=== PATIENT | male | born 1965 | race African-American/Black ===

== ENCOUNTER 2017-12-03 11:42 | Inpatient (IN) | payer OTHER ==
--- NOTE | 2017-12-03 13:04 | PDOC ---
History of Present Illness - General Chief Complaint: Edema Stated Complaint: SWOLLEN FACE Time Seen by Provider: 12/03/17 12:41 - History of Present Illness Initial Comments: 12/03/17 12:58 52 yo M with no significant pmh who p/w right sided facial swelling. Patient reports acute onset of worsening, right sided, non-painful, "cheek" swelling this AM upon waking up. States that he was blowing and picking in his nose the day before and believes he may have injured the area. Denies h/o similar presentation. Patient states that he is scheduled for lumbar back surgery (12/31). No recent travels or sick contacts. Denies trauma to face. Not on LORE-I Patient denies GREGORY, hoarseness, muffled voice, odynophagiua, dysphagia, ear pain , N/V, F,C, CP, Cough, Swelling, Palpitations, SOB, urinary complaints, abdominal pain, diarrhea, constipation, lightheadedness, weakness, sensory changes. PMHx: as noted above ROS: as noted Allergies: NKDA Past History - Past Medical History Allergies/Adverse Reactions: Allergies Allergy/AdvReac Type Severity Reaction Status Date / Time No Known Allergies Allergy Verified 12/03/17 11:53 Home Medications: Ambulatory Orders Bupropion HCl [Wellbutrin Xl -] 300 mg PO DAILY 12/03/17 Citalopram Hydrobromide [Celexa -] mg PO DAILY 12/03/17 Duloxetine HCl [Cymbalta] mg PO DAILY 12/03/17 Hydrocodone/Acetaminophen [Hydrocodone-Acetamin 5-325 mg] 1 each PO QID PRN 02/08 Meloxicam [Mobic] 15 mg PO HS 12/03/17 Tizanidine HCl [Zanaflex (Nf)] 4 mg PO ASDIR 12/03/17 Trazodone HCl mg PO HS 12/03/17 COPD: No - Suicide/Smoking/Psychosocial Hx Smoking History: Former smoker Have you smoked in the past 12 months: No Information on smoking cessation initiated: No Review of Systems - Review of Systems Comments:: 12/03/17 13:06 GENERAL/CONSTITUTIONAL: No fever or chills. No weakness. HEAD, EYES, EARS, NOSE AND THROAT: No change in vision. No ear pain or discharge. No sore throat. CARDIOVASCULAR: No chest pain or shortness of breath RESPIRATORY: No cough, wheezing, or hemoptysis. GASTROINTESTINAL: No nausea, vomiting, diarrhea or constipation. GENITOURINARY: No dysuria, frequency, or change in urination. MUSCULOSKELETAL: No joint or muscle swelling or pain. No neck or back pain. SKIN: No rash NEUROLOGIC: No headache, vertigo, loss of consciousness, or change in strength/ sensation. ENDOCRINE: No increased thirst. No abnormal weight change HEMATOLOGIC/LYMPHATIC: No anemia, easy bleeding, or history of blood clots. ALLERGIC/IMMUNOLOGIC: No hives or skin allergy. *Physical Exam - Vital Signs Last Vital Signs Temp Pulse Resp BP Pulse Ox 98.4 F 85 18 122/74 99 12/03/17 11:53 12/03/17 11:53 12/03/17 11:53 12/03/17 11:53 12/03/17 11:53 - Physical Exam Comments: 12/03/17 13:06 GENERAL: Awake, alert, and fully oriented, in no acute distress HEAD: No signs of trauma, normocephalic, atraumatic FACE: + Right sided zygmoatic edema. Absent erythema, warmth, ttp. EYES: PERRLA, EOMI, sclera anicteric, conjunctiva clear ENT: + Partial upper dentures, with adequate dentention.Auricles normal inspection, hearing grossly normal, nares patent, oropharynx clear without exudates. Moist mucosa NECK: Normal ROM, supple, no lymphadenopathy, JVD, or masses LUNGS: No distress, speaks full sentences, clear to auscultation bilaterally HEART: Regular rate and rhythm, normal S1 and S2, no murmurs, rubs or gallops, peripheral pulses normal and equal bilaterally. EXTREMITIES : Normal inspection, Normal range of motion, no edema. No clubbing or cyanosis. SKIN: Warm, Dry, normal turgor, no rashes or lesions noted ED Treatment Course - LABORATORY CBC & Chemistry Diagram: 12/03/17 12:42 12/03/17 12:55 Medical Decision Making - Medical Decision Making 12/03/17 13:04 52 yo M with no significant pmh who p/w right sided facial swelling. VSS, AF. + Edema and facial asymmetry underlying R sided zygomatic arch. Will consider possible buccal space infection, facial cellulitis vs abscess. Low suspicion maxillofacial trauma, angioedema. ED Course: 12/03/17 13:09 CBC,CMP, Blood Cx. Facial bones CT, 12/03/17 14:30 CBC,CMP: Unremarkable 12/03/17 15:32 Mod soft tissue swelling of inferior orbital rim and right cheek. Patient admitted to inpt. med/surg. Facial cellulitis 12/03/17 15:33 started on IV Clindamycin *DC/Admit/Observation/Transfer Diagnosis at time of Disposition: Facial cellulitis - Discharge Dispostion Condition at time of disposition: Stable Decision to Admit order: Yes - Referrals - Patient Instructions - Post Discharge Activity
[2017-12-03 13:07] LABS: BASO % 1.3 % (0-2.0); HEMATOCRIT 43.7 % (35.4-49); HEMOGLOBIN 14.1 GM/dL (11.7-16.9); LYMPH % 28.4 % (8-40); MCHC 32.2 g/dl (32.0-35.9); MEAN CELL VOLUME 86.9 fl (80-96); MEAN PLT VOLUME 8.2 fl (7.5-11.1); MONO % 7.8 % (3.8-10.2); NEUT % 61.5 % (42.8-82.8); PLATELET COUNT 229 K/MM3 (134-434); RBC 5.03 M/mm3 (4.00-5.60); RDW 13.9 % (11.9-15.9); WHITE BLOOD COUNT 8.3 K/mm3 (4.0-10.0)
--- NOTE | 2017-12-03 13:12 | PDOC ---
Attending Attestation - HPI HPI: 12/03/17 13:32 The patient is a 52-year-old male with past medical history significant for An L4-L5 hernia, degenerative scoliosis, and benign spinal tumor pending spinal surgery December 31 presents to the emergency department with facial swelling. The patient presents with R. upper lip/cheek swelling since yesterday. The patient states initially there was only mild swelling, through it was sinus. The patient reports the swelling was worsened today, denies itching, draining, or numbness. The patient states he was blowing his nose a lot yesterday. The patient states he has a scab in the R. nostril, that may be the cause of the swelling. The patient reports associated symptoms of coldness to the eyes, tenderness to the nose and face, subjective fever, and chills. The patient reports he has a partial denture, denies cavities. Allergies: NKA Social history: Former tobacco user, no past or present use of alcohol or recreational drug use. Surgical history: None reported PCP: None reported. - Physicial Exam PE: 12/03/17 13:13 GENERAL: Awake, alert, and fully oriented, in no acute distress HEAD: No signs of trauma EYES: PERRLA, EOMI, sclera anicteric, conjunctiva clear ENT: (+) R. upper lip swelling, indurated, with palpable facial abscess under the nare. oropharynx clear without exudates. Moist mucosa NECK: Normal ROM, supple, no lymphadenopathy, JVD, or masses LUNGS: Breath sounds equal, clear to auscultation bilaterally. No wheezes, and no crackles HEART: Regular rate and rhythm, normal S1 and S2, no murmurs, rubs or gallops EXTREMITIES: Well perfused, no edema. No clubbing or cyanosis. - Medical Decision Making 12/03/17 13:13 Documentation prepared by Oksana Martínez, acting as biomedical engineering professor for Chuyita Garcia MD. <Oksana Martínez - Last Filed: 12/03/17 13:32> - Resident Resident Name: Tacho Chand - ED Attending Attestation I have performed the following: I have examined & evaluated the patient, The case was reviewed & discussed with the resident, I agree w/resident's findings & plan, Exceptions are as noted - Medical Decision Making pt with swelling of face, differential abscess, facial cellulitis, possible source nasal sore. due to proximity to central vascular supply, facial will admit for iv antiobtiocs, pt scheduled for ortho spin surgery in [address] Florentino, accepted for admission for facial cellulitis. 12/03/17 15:24 <Chuyita Garcia - Last Filed: 12/03/17 15:44> Heart Score/ECG Review #1 General ECG Interpretation: Sinus Rhythm, Normal Rate (70), Normal Intervals, No acute ischemic changes <Chuyita Garcia - Last Filed: 12/03/17 15:44>
[2017-12-03 13:30] LABS: ALBUMIN 3.6 g/dl (3.4-5.0); ALK PHOS 77 U/L (45-117); ANION GAP 6 MMOL/L (8-16); BILIRUBIN,TOTAL 0.6 mg/dL (0.2-1); BLOOD UREA NITROGEN 11 mg/dL (7-18); CALCIUM 8.8 mg/dL (8.5-10.1); CHLORIDE 104 mmol/L (98-107); CO2 27 mmol/L (21-32); GLUCOSE,RANDOM 107 mg/dL (74-106); POTASSIUM 4.6 mmol/L (3.5-5.1); SGOT/AST 41 U/L (15-37); SGPT/ALT 64 U/L (13-61); SODIUM 137 mmol/L (136-145); TOT PROT 7.6 g/dl (6.4-8.2)
[2017-12-03] MEDS ORDERED: CLINDAMYCIN 900 MG PREMIX IVPB 900 MG/50 ML BAG IVPB ONE (15:06)
[2017-12-03] MEDS ORDERED: CLINDAMYCIN 600MG PREMIX IVPB 600 MG/50 ML BAG IVPB ONE (15:43)
[2017-12-03] MEDS ORDERED: VANCOMYCIN 1,000 MG in DEXTROSE 5%-WATER - 250 ML IVPB ONE (16:37)
[2017-12-03] MEDS ORDERED: ACETAMINOPHEN 325 MG TABLET (FP) PO PRN (16:37)
--- NOTE | 2017-12-03 16:37 | HP ---
CHIEF COMPLAINT:Right face swelling PCP:[facility] HISTORY OF PRESENT ILLNESS: 52M with PMH of sciatica, chronic back pain secondary to L4-L5 disc herniation and "a problem with S1", presents to the hospital with 1 day history of right lip and face swelling. Patient endorses that it does not hurt much but rather it is tight and pressure like discomfort. he also endorses his face being hot. He states it is tender when he presses on it. He endorses he was irrigating his nose out with saline and then started picking it to clean it out 2 days ago and may have scratched his nose too hard. He has a history of poor dentition and has partial dentures on the top. He denies nausea, vomiting, fever, chills, chest pain, shortness of breath, GI or symptoms, LE edema, allergies, or starting any new medications. He endorses he has a benign spinal tumor and he is supposed to have surgery December 31, 2017 for all his spinal issues. He states he was worked up and had a full physical and medical clearance 2 days ago and everything was fine. He endorses having a colonoscopy at age 50 and everything was normal. States he was recently also checked for HIV and Hepatitis and was negative. ER course was notable for: (1)Labs BCx (2)EKG (3)Clindamycin IV Recent Travel:Denies PAST MEDICAL HISTORY:depression, panic disorder, chronic lower back pain, lumbago, sciatica, L4-L5 Disc herniation, benign spinal tumor PAST SURGICAL HISTORY: Social History: Smoking:quit 13 years ago Alcohol:Denies Drugs: Denies Family History: Allergies No Known Allergies Allergy (Verified 12/03/17 11:53) HOME MEDICATIONS: Home meds reviewed with the patient and verified. Entered by this provider. Home Medication List Medication Instructions Recorded Confirmed Type Aripiprazole [Abilify] 10 mg PO DAILY 12/03/17 12/03/17 History Bupropion HCl [Wellbutrin Xl -] 300 mg PO DAILY 12/03/17 12/03/17 History Citalopram Hydrobromide [Celexa -] 20 mg PO DAILY 12/03/17 12/03/17 History Duloxetine HCl [Cymbalta] 30 mg PO DAILY 12/03/17 12/03/17 History Duloxetine HCl [Cymbalta] 60 mg PO HS 12/03/17 12/03/17 History Hydrocodone/Acetaminophen 1 each PO Q8H PRN 12/03/17 12/03/17 History [Hydrocodone-Acetamin 5-325 mg] Meloxicam [Mobic] 15 mg PO DAILY 12/03/17 12/03/17 History Pregabalin [Lyrica -] 75 mg PO HS 12/03/17 12/03/17 History Pregabalin [Lyrica -] 200 mg PO DAILY 12/03/17 12/03/17 History Tizanidine HCl [Zanaflex (Nf)] 4 mg PO Q8H 12/03/17 12/03/17 History Trazodone HCl 300 mg PO HS 12/03/17 12/03/17 History REVIEW OF SYSTEMS CONSTITUTIONAL: Absent: fever, chills, diaphoresis, generalized weakness, malaise, loss of appetite, weight change HEENT: Absent: rhinorrhea, nasal congestion, throat pain, throat swelling, difficulty swallowing, mouth swelling, ear pain, eye pain, visual changes Present: Right facial swelling, tenderness, warmth, and redness involving the right lip extending to the nasolabial fold and laterally to the cheek. CARDIOVASCULAR: Absent: chest pain, syncope, palpitations, irregular heart rate, lightheadedness , peripheral edema RESPIRATORY: Absent: cough, shortness of breath, dyspnea with exertion, orthopnea, wheezing, stridor, hemoptysis GASTROINTESTINAL: Absent: abdominal pain, abdominal distension, nausea, vomiting, diarrhea, constipation, melena, hematochezia GENITOURINARY: Absent: dysuria, frequency, urgency, hesitancy, hematuria, flank pain, genital pain MUSCULOSKELETAL: Absent: myalgia, arthralgia, joint swelling, neck pain Present: Chronic lower back pain SKIN: Absent: rash, itching, pallor HEMATOLOGIC/IMMUNOLOGIC: Absent: easy bleeding, easy bruising, lymphadenopathy, frequent infections ENDOCRINE: Absent: unexplained weight gain, unexplained weight loss, heat intolerance, cold intolerance NEUROLOGIC: Absent: headache, focal weakness or paresthesias, dizziness, unsteady gait, seizure, mental status changes, bladder or bowel incontinence PSYCHIATRIC: Absent: anxiety, depression, suicidal or homicidal ideation, hallucinations. PHYSICAL EXAMINATION Vital Signs - 24 hr 12/03/17 11:53 Temperature 98.4 F Pulse Rate 85 Respiratory 18 Rate Blood Pressure 122/74 O2 Sat by Pulse 99 Oximetry (%) GENERAL: Awake, alert, and fully oriented, in no acute distress. HEAD: right side of face: right lip swellings with redness extending to nasolabial fold and laterally to the cheeck. Partial dentures removed and no abscesses seen in the mouth. tenderness to palpation over the swelling. right parotid duct opening into the cheek slightly tender. EYES: Pupils equal, round and reactive to light, extraocular movements intact EARS, NOSE, THROAT: Moist mucous membranes. NECK: Normal range of motion, supple without JVD LUNGS: Breath sounds equal, clear to auscultation bilaterally. HEART: Regular rate and rhythm, normal S1 and S2 without murmur ABDOMEN: Soft, nontender, not distended, normoactive bowel sounds MUSCULOSKELETAL: Normal range of motion at all joints. No CVA tenderness. UPPER EXTREMITIES: warm, well-perfused. No peripheral edema. LOWER EXTREMITIES:warm, well-perfused. No calf tenderness. No peripheral edema. NEUROLOGICAL: Cranial nerves II-XII intact. Normal speech. Normal gait. PSYCHIATRIC: Cooperative. Good eye contact. Appropriate mood and affect. Laboratory Results - last 24 hr 12/03/17 12/03/17 12:42 12:55 WBC 8.3 RBC 5.03 Hgb 14.1 Hct 43.7 MCV 86.9 MCH 28.0 MCHC 32.2 RDW 13.9 Plt Count 229 MPV 8.2 Absolute Neuts (auto) 5.1 Neutrophils % 61.5 Lymphocytes % 28.4 Monocytes % 7.8 Eosinophils % 1.0 Basophils % 1.3 Nucleated RBC % 0 Sodium 137 Potassium 4.6 Chloride 104 Carbon Dioxide 27 Anion Gap 6 L BUN 11 Creatinine 1.0 Creat Clearance w eGFR > 60 Random Glucose 107 H Calcium 8.8 Total Bilirubin 0.6 AST 41 H ALT 64 H Alkaline Phosphatase 77 C-Reactive Protein 3.8 H Total Protein 7.6 Albumin 3.6 EKG: NSR Qtc 406 CT facial bones: Moderate soft tissue swelling of the right as well as soft tissue swelling over the right cheek and right inferior orbital rim without gross evidence of abnormal enhancement or a collection/ abscess. Correlate clinically for further evaluation and follow-up ASSESSMENT/PLAN: 52M with psychiatric history of depression, panic disorder, benign spinal mass, and chronic lower back pain, presents to the hospital with right facial cellulitis. Problem list: Facial cellulitis depression panic disorder chronic lower back pain lumbago sciatica L4-L5 Disc herniation benign spinal tumor Plan: admit to inpatient services to med/surg received clindamycin in ER ID consult Clindamycin 900mg IV Q8h give 1 dose of 1gm vancomycin now Send BCx add on CRP and ESR afebrile and no leukocytosis no IVF no electrolyte issues pain control antipyretics if needed restart home meds trazadone celexa wellbutrin lyrica zanaflex and abilify Case discussed with attending Dr. negron and Dr. Segura from ID Visit type - Emergency Visit Emergency Visit: Yes ED Registration Date: 12/03/17 Care time: The patient presented to the Emergency Department on the above date and was hospitalized for further evaluation of their emergent condition. - New Patient This patient is new to me today: Yes Date on this admission: 12/03/17 - Critical Care Critical Care patient: No
[2017-12-03] MEDS ORDERED: oxyCODONE HCL 5 MG TABLET PO PRN (16:49)
--- NOTE | 2017-12-03 18:46 | PN ---
Teaching Attending Note Name of Resident: Bud Florentino ATTENDING PHYSICIAN STATEMENT I saw and evaluated the patient. I reviewed the resident's note and discussed the case with the resident. I agree with the resident's findings and plan as documented. SUBJECTIVE: Patient is c/o having right facial swelling. no fever or chills, no shortness of breath. OBJECTIVE: Vital Signs Temperature 98.4 F 12/03/17 11:53 Pulse Rate 85 12/03/17 11:53 Respiratory Rate 18 12/03/17 11:53 Blood Pressure 122/74 12/03/17 11:53 O2 Sat by Pulse Oximetry (%) 99 12/03/17 11:53 GENERAL: Awake, alert, and fully oriented, in no acute distress. HEAD: right side of face: right lip swellings with redness extending to nasolabial fold and laterally to the check. Partial dentures removed and no abscesses seen in the mouth. tenderness to palpation over the swelling. EYES: Pupils equal, round and reactive to light, extraocular movements intact EARS, NOSE, THROAT: Moist mucous membranes. NECK: Normal range of motion, supple without JVD LUNGS: Breath sounds equal, clear to auscultation bilaterally. HEART: Regular rate and rhythm, normal S1 and S2 without murmur ABDOMEN: Soft, nontender, not distended, normoactive bowel sounds MUSCULOSKELETAL: Normal range of motion at all joints. No CVA tenderness. EXTREMITIES: warm, well-perfused. No peripheral edema. NEUROLOGICAL: Cranial nerves II-XII intact. Normal speech. Normal gait. PSYCHIATRIC: Cooperative. Good eye contact. Appropriate mood and affect. CBCD WBC 8.3 K/mm3 (4.0-10.0) 12/03/17 12:42 RBC 5.03 M/mm3 (4.00-5.60) 12/03/17 12:42 Hgb 14.1 GM/dL (11.7-16.9) 12/03/17 12:42 Hct 43.7 % (35.4-49) 12/03/17 12:42 MCV 86.9 fl (80-96) 12/03/17 12:42 MCHC 32.2 g/dl (32.0-35.9) 12/03/17 12:42 RDW 13.9 % (11.9-15.9) 12/03/17 12:42 Plt Count 229 K/MM3 (134-434) 12/03/17 12:42 MPV 8.2 fl (7.5-11.1) 12/03/17 12:42 CMP Sodium 137 mmol/L (136-145) 12/03/17 12:55 Potassium 4.6 mmol/L (3.5-5.1) 12/03/17 12:55 Chloride 104 mmol/L (98-107) 12/03/17 12:55 Carbon Dioxide 27 mmol/L (21-32) 12/03/17 12:55 Anion Gap 6 MMOL/L (8-16) L 12/03/17 12:55 BUN 11 mg/dL (7-18) 12/03/17 12:55 Creatinine 1.0 mg/dL (0.55-1.3) 12/03/17 12:55 Creat Clearance w eGFR > 60 (>60) 12/03/17 12:55 Random Glucose 107 mg/dL (74-106) H 12/03/17 12:55 Calcium 8.8 mg/dL (8.5-10.1) 12/03/17 12:55 Total Bilirubin 0.6 mg/dL (0.2-1) 12/03/17 12:55 AST 41 U/L (15-37) H 12/03/17 12:55 ALT 64 U/L (13-61) H 12/03/17 12:55 Alkaline Phosphatase 77 U/L (45-117) 12/03/17 12:55 Total Protein 7.6 g/dl (6.4-8.2) 12/03/17 12:55 Albumin 3.6 g/dl (3.4-5.0) 12/03/17 12:55 Current Medications Generic Name Dose Route Start Last Admin Trade Name Freq PRN Reason Stop Dose Admin Acetaminophen 650 mg 12/03/17 16:37 Tylenol - PO Q4H PRN FEVER Aripiprazole 10 mg 12/04/17 10:00 Abilify PO DAILY ANTHONY Bupropion HCl 300 mg 12/04/17 10:00 Wellbutrin Xl - PO DAILY ANTHONY Citalopram Hydrobromide 20 mg 12/04/17 10:00 Celexa - PO DAILY ANTHONY Duloxetine HCl 30 mg 12/04/17 10:00 Cymbalta - PO DAILY ANTHONY Duloxetine HCl 60 mg 12/03/17 22:00 Cymbalta - PO HS [facility] Enoxaparin Sodium 40 mg 12/04/17 10:00 Lovenox - SQ DAILY [facility] Clindamycin Phosphate 900 mg in 50 mls @ 100 mls/hr 12/03/17 23:59 Cleocin 900 Mg Premix Ivpb - IVPB Q8H-IV [facility] Protocol Lactobacillus Acidophilus 1 tab 12/03/17 22:00 Bacid - PO BID [facility] Non-Formulary Medication 15 mg 12/04/17 10:00 Meloxicam [Mobic] PO DAILY [facility] Oxycodone HCl 5 mg 12/03/17 16:49 Roxicodone - PO Q8H PRN PAIN LEVEL 1-5 Pregabalin 75 mg 12/03/17 22:00 Lyrica - PO HS [facility] Pregabalin 200 mg 12/04/17 10:00 Lyrica - PO DAILY [facility] Tizanidine HCl 4 mg 12/03/17 17:00 Tizanidine Hcl PO TID [facility] Trazodone HCl 300 mg 12/03/17 22:00 Desyrel - PO HS [facility] Home Medications Medication Instructions Recorded Aripiprazole [Abilify] 10 mg PO DAILY 12/03/17 Bupropion HCl [Wellbutrin Xl -] 300 mg PO DAILY 12/03/17 Citalopram Hydrobromide [Celexa -] 20 mg PO DAILY 12/03/17 Duloxetine HCl [Cymbalta] 30 mg PO DAILY 12/03/17 Duloxetine HCl [Cymbalta] 60 mg PO HS 12/03/17 Hydrocodone/Acetaminophen 1 each PO Q8H PRN 12/03/17 [Hydrocodone-Acetamin 5-325 mg] Meloxicam [Mobic] 15 mg PO DAILY 12/03/17 Pregabalin [Lyrica -] 75 mg PO HS 12/03/17 Pregabalin [Lyrica -] 200 mg PO DAILY 12/03/17 Tizanidine HCl [Zanaflex (Nf)] 4 mg PO Q8H 12/03/17 Trazodone HCl 300 mg PO HS 12/03/17 EKG: NSR Qtc 406 CT facial bones: Moderate soft tissue swelling of the right as well as soft tissue swelling over the right cheek and right inferior orbital rim without gross evidence of abnormal enhancement or a collection/ abscess. Correlate clinically for further evaluation and follow-up ASSESSMENT AND PLAN: 52M with psychiatric history of depression, panic disorder, benign spinal mass, and chronic lower back pain, presents to the hospital with right facial cellulitis. #Acute Facial cellulitis: started on IV Clindamycin 900mg IV Q8h ,1 dose of vancomycin as per ID, BCx, CRP and ESR, ID consult as per appreciated #Hx of depression continue home meds restart home meds trazadone celexa wellbutrin lyrica zanaflex and abilify # panic disorder: continue celexa #chronic lower back pain with sciatica ,L4-L5 Disc herniation #Hx of benign spinal tumor further w/u as an outpatient DVT Px: Lovenox
--- NOTE | 2017-12-03 19:05 | PN ---
Progress Note (short form) - Note Progress Note: ID Consult dictated Pt seen in ER, case discussed with resident R facial cellulitis ? Dental source Obtain blood c/s Clindamycin 900mg IVPB q8h Vancomycin 1gm X 1 dose
[2017-12-03] MEDS ORDERED: VANCOMYCIN 1 GRAM (PRE-DOCKED) 1,000 MG/250 ML BAG IVPB ONE (20:17)
[2017-12-03] MEDS: TIZANIDINE HCL 4 MG TABLET PO SCH ×2 (20:37→22:21)
[2017-12-03] MEDS ORDERED: traZODone HCL 150 MG TABLET PO SCH (22:00)
[2017-12-03 22:18] VITALS: BMI 32.5
[2017-12-03] MEDS: DULoxetine HCL 30 MG CAPSULE.DR (FP) PO SCH (22:20)
[2017-12-03] MEDS: PREGABALIN 75 MG CAPSULE PO SCH (22:21)
[2017-12-03] MEDS: LACTOBACILLUS ACIDOPHILUS 1 TABLET PO SCH (22:30)
[2017-12-03] MEDS: CLINDAMYCIN 900 MG PREMIX IVPB 900 MG/50 ML BAG IVPB SCH (23:58)
[2017-12-04] MEDS: CLINDAMYCIN 900 MG PREMIX IVPB 900 MG/50 ML BAG IVPB SCH ×3 (04:52→17:59)
[2017-12-04] MEDS: TIZANIDINE HCL 4 MG TABLET PO SCH ×3 (06:12→21:31)
[2017-12-04 08:06] LABS: HEMATOCRIT 41.2 % (35.4-49); HEMOGLOBIN 13.8 GM/dL (11.7-16.9); MCH 28.7 pg (25.7-33.7); MCHC 33.4 g/dl (32.0-35.9); MEAN CELL VOLUME 85.8 fl (80-96); MEAN PLT VOLUME 8.6 fl (7.5-11.1); PLATELET COUNT 221 K/MM3 (134-434); RDW 13.7 % (11.9-15.9)
[2017-12-04 09:02] LABS: ALBUMIN 3.4 g/dl (3.4-5.0); ALK PHOS 71 U/L (45-117); ANION GAP 6 MMOL/L (8-16); BILIRUBIN,TOTAL 0.8 mg/dL (0.2-1); BLOOD UREA NITROGEN 11 mg/dL (7-18); CALCIUM 9.3 mg/dL (8.5-10.1); CHLORIDE 103 mmol/L (98-107); CO2 29 mmol/L (21-32); GLUCOSE,RANDOM 99 mg/dL (74-106); MAGNESIUM 2.1 mg/dL (1.8-2.4); PHOSPHOROUS 3.3 mg/dL (2.5-4.9); POTASSIUM 4.6 mmol/L (3.5-5.1); SGOT/AST 31 U/L (15-37); SGPT/ALT 54 U/L (13-61); SODIUM 137 mmol/L (136-145); TOT PROT 7.3 g/dl (6.4-8.2)
[2017-12-04] MEDS ORDERED: PT OWN MED DRAWER 7, Y5N ONE ×4 (09:50→20:59)
[2017-12-04] MEDS: LACTOBACILLUS ACIDOPHILUS 1 TABLET PO SCH ×2 (09:56→21:29)
[2017-12-04] MEDS: ENOXAPARIN NA (PORCINE) 40 MG/0.4 ML DISP.SYRIN SQ SCH (09:58)
[2017-12-04] MEDS: DULoxetine HCL 30 MG CAPSULE.DR (FP) PO SCH ×2 (09:58→21:28)
[2017-12-04] MEDS: PREGABALIN 100 MG CAPSULE PO SCH (09:58)
[2017-12-04] MEDS: CITALOPRAM HYDROBROMIDE 20 MG TABLET (FP) PO SCH (09:58)
[2017-12-04] MEDS: ARIPiprazole 10 MG TABLET PO SCH (09:59)
[2017-12-04] MEDS ORDERED: PATIENT'S OWN MEDICATION (NON-FORMULARY) (Meloxicam [Mobic] 15 MG) PO SCH (10:00)
--- NOTE | 2017-12-04 10:25 | EKG ---
Test Reason : Blood Pressure : / mmHG Vent. Rate : 070 BPM Atrial Rate : 070 BPM P-R Int : 148 ms QRS Dur : 112 ms QT Int : 376 ms P-R-T Axes : 067 -21 009 degrees QTc Int : 406 ms NORMAL SINUS RHYTHM INCOMPLETE RIGHT BUNDLE BRANCH BLOCK LEFTWARD AXIS NO PREVIOUS ECGS AVAILABLE Confirmed by ESTELLE RUVALCABA MD ([id number]) on 12/04/2017 10:25:23 AM Referred By: Confirmed By:ESTELLE RUVALCABA MD
--- NOTE | 2017-12-04 12:44 | PN ---
Progress Note, Physician History of Present Illness: Less facial discomfort No fever/ chills Afebrile Blood c/s no growth - Current Medication List Current Medications: Active Medications Acetaminophen (Tylenol -) 650 mg PO Q4H PRN PRN Reason: FEVER Last Admin: 12/04/17 09:56 Dose: 650 mg Aripiprazole (Abilify) 10 mg PO DAILY [facility] Last Admin: 12/04/17 09:59 Dose: 10 mg Bupropion HCl (Wellbutrin Xl -) 300 mg PO DAILY [facility] Last Admin: 12/04/17 10:00 Dose: 300 mg Citalopram Hydrobromide (Celexa -) 20 mg PO DAILY [facility] Last Admin: 12/04/17 09:58 Dose: 20 mg Duloxetine HCl (Cymbalta -) 30 mg PO DAILY [facility] Last Admin: 12/04/17 09:58 Dose: 30 mg Duloxetine HCl (Cymbalta -) 60 mg PO HS [facility] Last Admin: 12/03/17 22:20 Dose: Not Given Enoxaparin Sodium (Lovenox -) 40 mg SQ DAILY [facility] Last Admin: 12/04/17 09:58 Dose: 40 mg Clindamycin Phosphate (Cleocin 900 Mg Premix Ivpb -) 900 mg in 50 mls @ 100 mls /hr IVPB Q8H-IV [facility]; Protocol Last Admin: 12/04/17 09:59 Dose: 100 mls/hr Lactobacillus Acidophilus (Bacid -) 1 tab PO BID [facility] Last Admin: 12/04/17 09:56 Dose: 1 tab Non-Formulary Medication (Meloxicam [Mobic]) 15 mg PO DAILY [facility] Oxycodone HCl (Roxicodone -) 5 mg PO Q8H PRN PRN Reason: PAIN LEVEL 1-5 Pregabalin (Lyrica -) 75 mg PO HS [facility] Last Admin: 12/03/17 22:21 Dose: Not Given Pregabalin (Lyrica -) 200 mg PO DAILY [facility] Last Admin: 12/04/17 09:58 Dose: 200 mg Tizanidine HCl (Tizanidine Hcl) 4 mg PO TID [facility] Last Admin: 12/04/17 06:12 Dose: 4 mg Trazodone HCl (Desyrel -) 300 mg PO HS [facility] - Objective Vital Signs: Vital Signs Temperature 99.9 F H 12/04/17 05:30 Pulse Rate 96 H 12/04/17 05:30 Respiratory Rate 19 12/03/17 22:05 Blood Pressure 126/79 12/04/17 05:30 O2 Sat by Pulse Oximetry (%) 98 12/03/17 22:05 Constitutional: Yes: No Distress Eyes: Yes: Conjunctiva Clear Cardiovascular: Yes: Regular Rate and Rhythm, S1, S2 Respiratory: Yes: CTA Bilaterally Gastrointestinal: Yes: Normal Bowel Sounds, Soft. No: Tenderness Edema: No Labs: CBC, BMP 12/04/17 07:00 12/04/17 07:00 Assessment/Plan Facial cellulitis ? dental source Continue IV clindamycin additional 24hr
[2017-12-04] MEDS ORDERED: KETOROLAC TROMETHAMINE 15 MG/ML VIAL IM STA (12:55)
[2017-12-04] MEDS ORDERED: KETOROLAC TROMETHAMINE 15 MG/ML VIAL IM ONE (12:57)
--- NOTE | 2017-12-04 13:04 | PN ---
Progress Note (short form) - Note Progress Note: patient is doing well he has no complaints beside the sensation of facial swelling. Problem list: Facial cellulitis depression panic disorder chronic lower back pain lumbago sciatica L4-L5 Disc herniation benign spinal tumor Plan: c/w clindamycin 900mg q8hrs f/u BCx will start the patient on keterolac for inflammation and re-assess the patient restart home meds trazadone celexa wellbutrin lyrica zanaflex and abilify
[2017-12-04] MEDS: KETOROLAC TROMETHAMINE 15 MG/ML VIAL IM SCH (14:34)
[2017-12-04] MEDS ORDERED: traZODone HCL 50 MG TABLET (FP) ONE (20:58)
[2017-12-04] MEDS: PREGABALIN 75 MG CAPSULE PO SCH (21:27)
[2017-12-04] MEDS ORDERED: traZODone HCL 100 MG TABLET (FP) PO SCH (22:00)
[2017-12-05] MEDS ORDERED: PT OWN MED DRAWER 7, Y5N ONE ×3 (00:10→09:55)
[2017-12-05] MEDS: KETOROLAC TROMETHAMINE 15 MG/ML VIAL IM SCH (01:19)
[2017-12-05] MEDS: CLINDAMYCIN 900 MG PREMIX IVPB 900 MG/50 ML BAG IVPB SCH ×2 (01:20→10:02)
[2017-12-05] MEDS: TIZANIDINE HCL 4 MG TABLET PO SCH (06:22)
[2017-12-05] MEDS ORDERED: DEXAMETHASONE SOD PHOSPHATE 4 MG/1 ML VIAL IVPUSH ONE (09:16)
--- NOTE | 2017-12-05 09:29 | PN ---
Progress Note (short form) - Note Progress Note: patient is doing well he has no complaints beside the sensation of facial swelling. AAOX3 s1 and S2 rrr abdomen soft non-tender no ext edema facial swelling on the right side Plan: c/w clindamycin 900mg q8hrs f/u BCx will start the patient on keterolac for inflammation and re-assess the patient restart home meds trazadone celexa wellbutrin lyrica zanaflex and abilify ketorolac 15mg q12hr for pain will contact the patients dentist to evaluate the patient as an outpatient give 4mg of dexamenthasone for the facial swelling
[2017-12-05] MEDS: CITALOPRAM HYDROBROMIDE 20 MG TABLET (FP) PO SCH (10:02)
[2017-12-05] MEDS: LACTOBACILLUS ACIDOPHILUS 1 TABLET PO SCH (10:02)
[2017-12-05] MEDS: DULoxetine HCL 30 MG CAPSULE.DR (FP) PO SCH (10:03)
[2017-12-05] MEDS: PREGABALIN 100 MG CAPSULE PO SCH (10:03)
[2017-12-05] MEDS: ENOXAPARIN NA (PORCINE) 40 MG/0.4 ML DISP.SYRIN SQ SCH (10:03)
[2017-12-05] MEDS: ARIPiprazole 10 MG TABLET PO SCH (10:04)
[2017-12-05 10:30] LABS: BASO % 0.7 % (0-2.0); EOS % 1.6 % (0-4.5); HEMATOCRIT 37.7 % (35.4-49); HEMOGLOBIN 12.3 GM/dL (11.7-16.9); LYMPH % 26.4 % (8-40); MCH 28.2 pg (25.7-33.7); MCHC 32.7 g/dl (32.0-35.9); MEAN CELL VOLUME 86.2 fl (80-96); MEAN PLT VOLUME 8.1 fl (7.5-11.1); MONO % 10.1 % (3.8-10.2); NEUT % 61.2 % (42.8-82.8); PLATELET COUNT 212 K/MM3 (134-434); RBC 4.38 M/mm3 (4.00-5.60); RDW 13.3 % (11.9-15.9); WHITE BLOOD COUNT 9.7 K/mm3 (4.0-10.0)
[2017-12-05 11:07] LABS: ALK PHOS 64 U/L (45-117); ANION GAP 7 MMOL/L (8-16); BILIRUBIN,TOTAL 0.7 mg/dL (0.2-1); BLOOD UREA NITROGEN 13 mg/dL (7-18); CALCIUM 8.9 mg/dL (8.5-10.1); CHLORIDE 104 mmol/L (98-107); CO2 27 mmol/L (21-32); CREATININE 1.1 mg/dL (0.55-1.3); GLUCOSE,RANDOM 119 mg/dL (74-106); POTASSIUM 4.2 mmol/L (3.5-5.1); SGOT/AST 30 U/L (15-37); SGPT/ALT 48 U/L (13-61); SODIUM 139 mmol/L (136-145); TOT PROT 6.7 g/dl (6.4-8.2)
[2017-12-05 11:27] VITALS: BP 106/60; PULSE 83; TEMP 98
--- NOTE | 2017-12-05 12:35 | PN ---
Progress Note, Physician History of Present Illness: Reports R facial discomfort No fever/ chills Afebrile Tolerating antibiotic Blood c/s no growth - Current Medication List Current Medications: Active Medications Acetaminophen (Tylenol -) 650 mg PO Q4H PRN PRN Reason: FEVER Last Admin: 12/04/17 09:56 Dose: 650 mg Aripiprazole (Abilify) 10 mg PO DAILY [facility] Last Admin: 12/05/17 10:04 Dose: Not Given Bupropion HCl (Wellbutrin Xl -) 300 mg PO DAILY [facility] Last Admin: 12/05/17 10:03 Dose: 300 mg Citalopram Hydrobromide (Celexa -) 20 mg PO DAILY [facility] Last Admin: 12/05/17 10:02 Dose: 20 mg Duloxetine HCl (Cymbalta -) 30 mg PO DAILY [facility] Last Admin: 12/05/17 10:03 Dose: 30 mg Duloxetine HCl (Cymbalta -) 60 mg PO HS [facility] Last Admin: 12/04/17 21:28 Dose: 60 mg Enoxaparin Sodium (Lovenox -) 40 mg SQ DAILY [facility] Last Admin: 12/05/17 10:03 Dose: 40 mg Clindamycin Phosphate (Cleocin 900 Mg Premix Ivpb -) 900 mg in 50 mls @ 100 mls /hr IVPB Q8H-IV [facility]; Protocol Last Admin: 12/05/17 10:02 Dose: 100 mls/hr Ketorolac Tromethamine (Toradol Injection -) 15 mg IM Q12H [facility] Stop: 12/09/17 12:59 Last Admin: 12/05/17 01:19 Dose: 15 mg Lactobacillus Acidophilus (Bacid -) 1 tab PO BID [facility] Last Admin: 12/05/17 10:02 Dose: 1 tab Oxycodone HCl (Roxicodone -) 5 mg PO Q8H PRN PRN Reason: PAIN LEVEL 1-5 Pregabalin (Lyrica -) 75 mg PO HS [facility] Last Admin: 12/04/17 21:27 Dose: 75 mg Pregabalin (Lyrica -) 200 mg PO DAILY [facility] Last Admin: 12/05/17 10:03 Dose: 200 mg Tizanidine HCl (Tizanidine Hcl) 4 mg PO TID [facility] Last Admin: 12/05/17 06:22 Dose: 4 mg Trazodone HCl (Desyrel -) 300 mg PO HS [facility] Last Admin: 12/04/17 21:29 Dose: 300 mg - Objective Vital Signs: Vital Signs Temperature 98 F 12/05/17 09:30 Pulse Rate 83 12/05/17 09:30 Respiratory Rate 18 12/05/17 09:30 Blood Pressure 106/60 12/05/17 09:30 O2 Sat by Pulse Oximetry (%) 95 12/04/17 21:00 Constitutional: Yes: No Distress Eyes: Yes: Conjunctiva Clear HENT: Yes: Other (+R upper lip swelling extending to malar area No erythema + swelling R upper gingiva) Cardiovascular: Yes: Regular Rate and Rhythm, S1, S2 Respiratory: Yes: CTA Bilaterally Gastrointestinal: Yes: Normal Bowel Sounds, Soft, Tenderness Edema: No Labs: CBC, BMP 12/05/17 10:24 12/05/17 10:24 Assessment/Plan R Facial cellulitis ? dental abscess Continue IV clindamycin Needs dental evaluation for possible I&D
--- NOTE | 2017-12-05 12:52 | DS ---
Physical Exam: SUBJECTIVE: Patient seen and examined at bedside spoke to ENT and they do not drain gingival abscesses. Patient's huong works at [facility]. She spoke to [facility] ED and they have an oral surgeon business continuity management director and in house for 24 hours. She wants to leave here AMA and go straight there to have it drained. OBJECTIVE: Vital Signs Period Temp Pulse Resp BP Sys/Carvalho Pulse Ox Last 24 Hr 97.5 F-98.3 F 75-83 17-20 106-145/60-74 95 PHYSICAL EXAM GENERAL: The patient is awake, alert, and fully oriented, in no acute distress. EYES: PERRL, extraocular movements intact, conjunctiva clear. ENT: moist mucous membranes. right gingival abscess. indurated and tender. Right lip swollen. right nasolabial fold area is indurated and tender. NECK: Trachea midline, supple. LUNGS: Breath sounds equal, clear to auscultation bilaterally, no wheezes, no crackles, no accessory muscle use. HEART: Regular rate and rhythm, S1, S2 without murmur, rub or gallop. ABDOMEN: Soft, nontender, nondistended PSYCH: Normal mood, normal affect. SKIN: Warm, dry LABS Laboratory Results - last 24 hr 12/05/17 12/05/17 10:24 10:24 WBC 9.7 RBC 4.38 Hgb 12.3 Hct 37.7 MCV 86.2 MCH 28.2 MCHC 32.7 RDW 13.3 Plt Count 212 MPV 8.1 Absolute Neuts (auto) 6.0 Neutrophils % 61.2 Lymphocytes % 26.4 Monocytes % 10.1 Eosinophils % 1.6 Basophils % 0.7 Nucleated RBC % 0 Sodium 139 Potassium 4.2 Chloride 104 Carbon Dioxide 27 Anion Gap 7 L BUN 13 Creatinine 1.1 Creat Clearance w eGFR > 60 Random Glucose 119 H Calcium 8.9 Total Bilirubin 0.7 AST 30 ALT 48 Alkaline Phosphatase 64 Total Protein 6.7 Albumin 3.0 L HOSPITAL COURSE: Date of Admission:12/03/17 Date of Discharge: 12/05/17 52M with history of depression and chronic back pain presents to the ER with right facial swelling. Had facial bones CT with IV contrast which showed only soft tissue swelling and no abscess. Initially on presentation the patient did not have a gingival abscess over the right canine but rather some irritation on exam. Now it has declared itself and has formed into an abscess. Patient's facial swelling is likely due to a gingival abscess. Patient wants to leave AMA to go to [facility] where he can have it drained since we do not have a dentist or oral surgeon who comes here. Patient is leaving AMA. R/B/A discussed. Will send on 7 more days of clindamycin 450mg po q8h and bacid BID. Minutes to complete discharge: 45 Discharge Summary Reason For Visit: CELLULITIS OF FACE Current Active Problems Abscess of upper gingiva (Acute) Facial cellulitis (Acute) Condition: Guarded - Instructions Diet, Activity, Other Instructions: you were seen for facial swelling on the right side. you were started on clindamycin 900mg IV every 8 hours. whole you were here it seems like the infection has declared itself and you developed a gingival abscess on your gum. Please go straight to [facility] as discussed for incision and drainage of your gingival abscess. you will be send home on clindamycin 450mg by mouth every 8 hours for 7 days. You will also get bacid for a probiotic. It is very important to get care of the abscess as soon as possible to avoid tooth loss, sepsis, and possible . Please follow up with your primary care doctor as soon as possible follow up with a dentist as soon as possible. Continue your home medications Disposition: AGAINST MEDICAL ADVICE - Home Medications Comprehensive Discharge Medication List: Ambulatory Orders Aripiprazole [Abilify] 10 mg PO DAILY 12/03/17 Bupropion HCl [Wellbutrin Xl -] 300 mg PO DAILY 12/03/17 Citalopram Hydrobromide [Celexa -] 20 mg PO DAILY 12/03/17 Duloxetine HCl [Cymbalta] 30 mg PO DAILY 12/03/17 Duloxetine HCl [Cymbalta] 60 mg PO HS 12/03/17 Hydrocodone/Acetaminophen [Hydrocodone-Acetamin 5-325 mg] 1 each PO Q8H PRN 02/08 Meloxicam [Mobic] 15 mg PO DAILY 12/03/17 Pregabalin [Lyrica -] 75 mg PO HS 12/03/17 Pregabalin [Lyrica -] 200 mg PO DAILY 12/03/17 Tizanidine HCl [Zanaflex (Nf) -] 4 mg PO Q8H 12/03/17 Trazodone HCl 300 mg PO HS 12/03/17 Clindamycin [Cleocin -] 450 mg PO Q8H #21 capsule 12/05/17 Lactobacillus Acidophilus [Bacid -] 1 tab PO BID #14 tab 12/05/17 This patient is new to me today: No Emergency Visit: Yes ED Registration Date: 12/03/17 Care time: The patient presented to the Emergency Department on the above date and was hospitalized for further evaluation of their emergent condition. Critical Care patient: No - Discharge Referral Referred to [facility] Med P.C.: No
--- NOTE | 2017-12-05 13:05 | CONS ---
DATE OF CONSULTATION: 12/03/2017 INFECTIOUS DISEASE The patient is a 52-year-old male who was evaluated for right facial cellulitis. He reports awakening from sleep on the morning of admission with soft tissue swelling involving the right upper lip extending to the right cheek area. He states that he had been blowing and picking his nose as well as having a scab in his right nose. He believes that this may have something to do with the swelling. He had used irrigation of the nares. He subsequently developed the above symptoms and tenderness. He was evaluated in the emergency room where a CAT scan was performed of the head. It showed soft tissue swelling involving the right upper lip extending to the right cheek area. No discrete soft tissue abscess was found. He does have poor dentition but denies any pain on mastication. No reports of any recent dental abscesses. He denies any associated fever or chills. PAST MEDICAL HISTORY: Positive for depression, chronic low back pain, and DJD. ALLERGIES: No known allergies. MEDICATIONS: Include Tylenol, Abilify, wellbutrin, Celexa, Cymbalta, Lyrica, and Trazodone. SOCIAL HISTORY: He lives at home with his significant other. He is a former smoker. He denies a history of alcohol or illicit drug use. SYSTEMS REVIEW: Neurologic: No loss of consciousness, seizure activity or focal weakness. Cardiac: Negative chest pain or palpitations. Respiratory: Negative cough and sputum production. Gastrointestinal: Negative vomiting or diarrhea. Genitourinary: Negative for urinary tract infection. LABORATORY DATA: White count 8.3, creatinine 1.1, and sedimentation rate 8. Blood cultures pending. PHYSICAL EXAMINATION: General: He is awake and alert. He is not acutely toxic appearing. Vital Signs: Temperature 98.0, blood pressure 125/78, pulse 80 and regular, and respirations 20 per minute. HEENT: Sclerae anicteric. Examination of the head: There is soft tissue swelling involving the right upper lip extending to the right malar area. It is tender to touch. There is no erythema, no fluctuance or crepitus. The teeth are in poor repair. No obvious gingival abscess is noted. Neck: Supple. No palpable nodes. Heart: Sounds S1, S2. Lungs: Clear. No rhonchi, rales or wheezing. Abdomen: Soft. Extremities: Negative for edema. IMPRESSION: 1. Cellulitis, left face probable dental source. 2. Possible sepsis secondary to facial cellulitis. Obtain blood cultures. Empiric antibiotic coverage with clindamycin 100 mg IV piggyback every 8 hours, vancomycin 1 g IV piggyback stat dose. ENT evaluation. Dental evaluation. Analgesics as needed. We will follow. Thank you for the kind referral. ESTELLE PARRA M.D. [id number]
== END 2017-12-05 13:00 | disposition left against medical advice (07) | DRG 114 ==
LOC: JER 11:42 → JERBED 15:23 → J5S 21:54
PROVIDERS: ADMIT Internal Medicine; ATTEND Internal Medicine
DX: K05.219 Aggressive periodontitis, localized, unspecified severity (principal); L03.211 Cellulitis of face; F32.9 Major depressive disorder, single episode, unspecified; F41.0 Panic disorder [episodic paroxysmal anxiety]; M51.17 Intervertebral disc disorders with radiculopathy, lumbosacral region; D49.2 Neoplasm of unspecified behavior of bone, soft tissue, and skin; Z87.891 Personal history of nicotine dependence
CPT/HCPCS: 36415; 70487-TC; 80053; 83036; 83735; 84100; 85025; 85027; 85651; 86140; 87040; 93005; 93010; 99283-25

== ENCOUNTER 2019-03-13 12:09 | Emergency (ER) | payer OTHER ==
[2019-03-13 12:28] VITALS: TEMP 97.7; BMI 31.1
[2019-03-13] MEDS ORDERED: ASPIRIN 81 MG CHEWABLE TABLETS PO ONE (13:10)
[2019-03-13] MEDS ORDERED: ACETAMINOPHEN 1000 MG/100 ML VIAL (NON FORMULARY) IVPB ONE (13:10)
[2019-03-13] MEDS ORDERED: ACETAMINOPHEN INJECTION 100 ML IVPB ONE (13:18)
[2019-03-13] MEDS ORDERED: ASPIRIN 81 MG CHEWABLE TABLETS ONE (13:18)
--- NOTE | 2019-03-13 13:29 | PDOC ---
History of Present Illness - General Chief Complaint: Chest Pain Stated Complaint: CHEST PAIN Time Seen by Provider: 03/13/19 12:37 - History of Present Illness Initial Comments: 54M PMH anxiety, MDD presenting with 3 days of constant chest pain that started after sneezing. Pt states pain felt like a muscle tear at first but started worsening yesterday. Endorses associated back pain. Denies radiation to arms or neck. Pain is worse and sharp when laying down and improves and is dull when sitting up; worse w/ deep breaths. Denies lightheadedness, dizziness, changes in vision/hearing, GI / sx, calf pain / swelling. Endorses occasional chills , recent URI. No recent travel, surgeries, immobilization, hemptysis. No hx VTE. +FH cardiac (father, massive ME in 40s). NKDA Former tobacco, quit 15 years ago Denies etoh, drugs Past History - Past Medical History Allergies/Adverse Reactions: Allergies Allergy/AdvReac Type Severity Reaction Status Date / Time No Known Allergies Allergy Verified 03/13/19 12:24 Home Medications: Ambulatory Orders Aripiprazole [Abilify] 10 mg PO DAILY 12/03/17 Bupropion HCl [Wellbutrin Xl -] 300 mg PO DAILY 12/03/17 Citalopram Hydrobromide [Celexa -] 20 mg PO DAILY 12/03/17 Duloxetine HCl [Cymbalta] 30 mg PO DAILY 12/03/17 Duloxetine HCl [Cymbalta] 60 mg PO HS 12/03/17 Trazodone HCl 300 mg PO HS 12/03/17 Anemia: No Asthma: No Cancer: No Cardiac Disorders: No CVA: No COPD: No CHF: No Dementia: No Diabetes: No GI Disorders: No Disorders: No HTN: No Hypercholesterolemia: No Liver Disease: No Seizures: No Thyroid Disease: No - Immunization History Immunization Up to Date: Yes - Psycho Social/Smoking Cessation Hx Smoking History: Never smoked Have you smoked in the past 12 months: No If you are a former smoker, when did you quit?: 2004 Hx Alcohol Use: No Drug/Substance Use Hx: No Substance Use Type: None Hx Substance Use Treatment: No Review of Systems - Review of Systems Comments:: CONSTITUTIONAL: Endorses occasional chills. Denies F HEENT: Denies headache, lightheadedness, dizziness, changes in vision / hearing , diplopia, blurry vision, sore throat, rhinorrhea RESP: Endorses cough - nonproductive. Denies sob. CARD: Endorses chest pain. Denies palpitations GI: Denies N / V / D, abdominal pain, bloody stool, inability to tolerate PO : Denies dysuria, frequency SKIN: Denies rashes NEURO: Denies numbness, tingling, weakness MSK: Endorses upper back pain, see hPi *Physical Exam - Vital Signs Last Vital Signs Temp Pulse Resp BP Pulse Ox 97.7 F 86 18 122/81 100 03/13/19 12:26 03/13/19 12:26 03/13/19 12:26 03/13/19 12:03/13/19 12:26 - Physical Exam GEN: Sitting upright, NAD, comfortable. AAOx3. HEENT: NC/AT, EOMI, PERRL. No facial asymmetry. Moist mucous membranes. Normal voice. Supple neck w/ FROM. CV: S1/S2, RRR, no m/r/g LUNG: CTAB, no wheezes, crackles, rales, rhonchi. GI: Soft, ndnt, +BS, no guarding, no rebound. No masses. EXTREMITIES: No LE edema. No obvious deformities of all extremities. SKIN: Warm, dry, no rashes appreciated. PSYCH: Normal mood and affect. NEURO: Moving all extremities well. Ambulates w/ normal gait Heart Score/ECG Review - History History: Slightly suspicious - Electrocardiogram EKG: Non specific repolarization disturbance - Age Age: 45-65 - Risk Factors Risk Factors Heart Score: Yes Positive family hx of cardiac disease, Yes Hx Obesity Based on the list above the patient has:: 1-2 risk factors ED Treatment Course - LABORATORY CBC & Chemistry Diagram: 03/13/19 13:15 03/13/19 13:15 - RADIOLOGY Radiology Studies Ordered: Category Date Time Status CHEST X-RAY PORTABLE* [RAD] Stat Radiology 03/13/19 12:42 Ordered Medical Decision Making - Medical Decision Making 03/13/19 13:13 54M w/ 3 days of constant, pleuritic, positional chest pain that radiates to the back; worsened yesterday. Pt unable to laying back 2/2 symptoms. DDx - r/o ACS; considering pericarditis, PNA, MSK strain. unlikely AoD, VTE - CBC, CMP, Cardiac - EKG - CXR - ASA, tylenol EKG 1218 HR 69 WA 146 QRS 112 QTc 409 NSR, RSR' V2 labs reviewed, reassuring DC home w/ cardiology f/u Discharge - Discharge Information Problems reviewed: Yes Clinical Impression/Diagnosis: Chest pain, atypical Condition: Stable Disposition: HOME - Admission No - Follow up/Referral Referrals: ON STAFF,NOT [Primary Care Provider] - Newton Dooley MD [Staff Physician] - Sandip Awad MD [Staff Physician] - Angela Hughes MD [Staff Physician] - Michael Aviles MD [Staff Physician] - - Patient Discharge Instructions Patient Printed Discharge Instructions: DI for Atypical Chest Pain Additional Instructions: Follow up with your Primary Care Doctor in the next 3-5 days. Follow up with Cardiology in the next 7 days. If you do not have one, you may use the ones below. Continue your home medications as prescribed. Take tylenol or ibuprofen as directed on the label for pain. Immediately return to the Emergency Department if you experience: - worsening pain - shortness of breath - development of any concerning symptoms - Post Discharge Activity
[2019-03-13 13:40] LABS: BASO % 1.2 % (0-2.0); EOS % 3.9 % (0-4.5); HEMATOCRIT 43.7 % (35.4-49); HEMOGLOBIN 14.4 GM/dL (11.7-16.9); LYMPH % 35.1 % (8-40); MCH 28.9 pg (25.7-33.7); MCHC 32.9 g/dl (32.0-35.9); MEAN CELL VOLUME 87.9 fl (80-96); MONO % 8.6 % (3.8-10.2); NEUT % 51.2 % (42.8-82.8); PLATELET COUNT 287 K/MM3 (134-434); RBC 4.97 M/mm3 (4.00-5.60); RDW 14.1 % (11.9-15.9); WHITE BLOOD COUNT 4.4 K/mm3 (4.0-10.0)
[2019-03-13 14:12] LABS: ALBUMIN 3.5 g/dl (3.4-5.0); BILIRUBIN,TOTAL 0.3 mg/dL (0.2-1); BLOOD UREA NITROGEN 8.7 mg/dL (7-18); CALCIUM 9.3 mg/dL (8.5-10.1); CREATININE 1.3 mg/dL (0.55-1.3); MAGNESIUM 2.2 mg/dL (1.8-2.4); PHOSPHOROUS 2.9 mg/dL (2.5-4.9); TOT PROT 7.8 g/dl (6.4-8.2)
--- NOTE | 2019-03-13 14:40 | PDOC ---
Documentation entered by Dang Pearson SCRIBE, acting as scribe for George Queen MD. George Queen MD: This documentation has been prepared by the Lili ovalles Xhesika, SCRIBE, under my direction and personally reviewed by me in its entirety. I confirm that the documentation accurately reflects all work, treatment, procedures, and medical decision making performed by me. Attending Attestation - Resident Resident Name: JhonyLenny - ED Attending Attestation I have performed the following: I have examined & evaluated the patient, The case was reviewed & discussed with the resident, I agree w/resident's findings & plan, Exceptions are as noted - HPI HPI: 03/13/19 14:13 The patient is a 54 year old male with a PMH of anxiety and MDD who presents to the ED for 3 days of chest pain, worsening today. The patient describes his chest pain as constant, discomfort, worsened with deep breathing and lying down. Pt states he had similar symptoms in the past when he had walking pneumonia. Pt denies and recent traveling. The patient denies leg swelling, shortness of breath, and dizziness. Denies fever, chills, cough, nausea, vomiting, and constipation. Denies dysuria, frequency, urgency and hematuria. Allergy: NKDA Social: Denies alcohol, cigarette or drug use. - Physicial Exam PE: 03/13/19 14:14 Exam Vitals: Triage Vital signs reviewed General Appearance: no acute distress, well nourished well developed, Chest Wall: Nontender Cardiac: Regular rate and rhythm, no murmurs, no rubs, no gallops, Lungs: Clear to auscultation bilateral, good air movement bilaterally, Abdomen: Soft, nondistended, normal bowel sounds, nontender to palpation Extremities: Full range of motion to all extremities, no cyanosis, clubbing, or edema Skin: Warm and dry, no rashes or lesions, no petechiae Neuro: AOX3; Cranial Nerves 2-12 grossly c intact, Strength intact to all extremities, Sensation intact to all extremities, gait normal Psych: normal mood, normal affect - Medical Decision Making 03/13/19 14:40 Heart score 1 troponin -3 day history of atypical discomfort after sneezing forcefully chest x-ray with no acute pathology no risk factors Findings, the need for follow-up and strict return instructions discussed with patient. His EKG 03/13/19 14:42 Discharge - Discharge Information Problems reviewed: Yes Clinical Impression/Diagnosis: Chest pain, atypical Condition: Stable Disposition: HOME - Follow up/Referral Referrals: Michael Aviles MD [Staff Physician] - Angela Hughes MD [Staff Physician] - Newton Dooley MD [Staff Physician] - Sandip Awad MD [Staff Physician] - ON STAFF,NOT [Primary Care Provider] - - Patient Discharge Instructions Patient Printed Discharge Instructions: DI for Atypical Chest Pain Additional Instructions: Follow up with your Primary Care Doctor in the next 3-5 days. Follow up with Cardiology in the next 7 days. If you do not have one, you may use the ones below. Continue your home medications as prescribed. Take tylenol or ibuprofen as directed on the label for pain. Immediately return to the Emergency Department if you experience: - worsening pain - shortness of breath - development of any concerning symptoms - Post Discharge Activity Heart Score/ECG Review - History History: Slightly suspicious - Electrocardiogram EKG: Normal - Age Age: 45-65 - Risk Factors Based on the list above the patient has:: No risk factors known - Troponin Troponin: </= normal limit - Score Heart Score - Total: 1 - ECG Impressions Comment:: 03/13/19 14:42 EKG performed at [address] elevations or T wave inversions incomplete right bundle branch block Interpreted by me.
[2019-03-13 14:43] VITALS: BP 113/70; PULSE 87
--- NOTE | 2019-03-14 11:30 | EKG ---
Test Reason : Blood Pressure : / mmHG Vent. Rate : 069 BPM Atrial Rate : 069 BPM P-R Int : 146 ms QRS Dur : 112 ms QT Int : 382 ms P-R-T Axes : 069 -26 032 degrees QTc Int : 409 ms NORMAL SINUS RHYTHM INCOMPLETE RIGHT BUNDLE BRANCH BLOCK BORDERLINE ECG WHEN COMPARED WITH ECG OF 03-DEC-2017 15:40, NO SIGNIFICANT CHANGE WAS FOUND Confirmed by Michael Aviles MD ([id number]) on 03/14/2019 11:30:09 AM Referred By: Confirmed By:Michael Aviles MD
== END 2019-03-13 14:47 | disposition home or self-care (01) ==
LOC: JER 12:09 → SUPCPDRO 12:09 → JER 14:47
PROC: 3E033NZ Introduction of Analgesics, Hypnotics, Sedatives into Peripheral Vein, Percutaneous Approach (ICD-10-PCS; principal; 2019-03-13)
DX: R07.89 Other chest pain (principal); F32.9 Major depressive disorder, single episode, unspecified; F41.8 Other specified anxiety disorders; E66.9 Obesity, unspecified; Z68.31 Body mass index [BMI] 31.0-31.9, adult; Z82.49 Family history of ischemic heart disease and other diseases of the circulatory system
CPT/HCPCS: 36415; 71045-TC-FY; 80053; 82550; 82553; 83735; 84100; 84484; 85025; 93005; 93010; 96374; 99285-25; J0131